=== PATIENT | female | born 1955 | race Caucasian/White ===

== ENCOUNTER 2020-06-18 09:45 | Day surgery (SDC) | payer BC ==
[2020-06-16 16:07] VITALS: BMI 25.9
--- NOTE | 2020-06-18 06:53 | P.GSHP ---
History of Present Illness H&P Date: 06/18/20 65yo female with recurrent utis, a 7-8 mm mid ureteral stone who comes for a left ureterosocpy with laser lithotripsy.The risks, complications including sepsis, ureteral injury, bleeding have been explained understood and accepted. - Constitutional Constitutional: Denies chills, Denies fever - EENT Eyes: denies blurred vision, denies pain Ears, nose, mouth and throat: Denies headache, Denies sore throat - Cardiovascular Cardiovascular: Denies chest pain, Denies shortness of breath - Respiratory Respiratory: Denies cough, Denies 7 - Gastrointestinal Gastrointestinal: Denies abdominal pain, Denies diarrhea, Denies nausea, Denies vomiting - Genitourinary (Female) Genitourinary: Denies dysuria, Denies hematuria - Genitourinary (Male) Genitourinary: Denies dysuria, Denies hematuria - Musculoskeletal Musculoskeletal: Denies myalgias - Integumentary Integumentary: Denies pruritus, Denies rash - Neurological Neurological: Denies numbness, Denies weakness - Psychiatric Psychiatric: Denies anxiety, Denies depression - Endocrine Endocrine: Denies fatigue, Denies weight change Past Medical History Past Medical History: Chest Pain / Angina, Hyperlipidemia, Hypertension Additional Past Medical History / Comment(s): low potassium. glaucoma fernanda eyes History of Any Multi-Drug Resistant Organisms: None Reported Past Surgical History: Section Additional Past Surgical History / Comment(s): laser surgery r/t glaucoma. fernanda carpal tunnel, lt ankle surgery. breast lift and tummy tuck. C/S x3 Past Anesthesia/Blood Transfusion Reactions: Previous Problems w/ Anesthesia Additional Past Anesthesia/Blood Transfusion Reaction / Comment(s): "anesthesia knocks me out for a couple days" Smoking Status: Former smoker - Past Family History Sister(s) Family Medical History: Cancer Medications and Allergies Home Medications Medication Instructions Recorded Confirmed Type Aspirin [Adult Low Dose Aspirin EC] 81 mg PO DAILY 06/16/20 06/16/20 History Atorvastatin [Lipitor] 80 mg PO DAILY 06/16/20 06/16/20 History Cefdinir 300 mg PO Q12HR 06/16/20 06/16/20 History Chlorpheniramine Maleate 4 mg PO DAILY PRN 06/16/20 06/16/20 History [Chlor-Trimeton] Cholecalciferol [Vitamin D3 (25 1,000 unit PO DAILY 06/16/20 06/16/20 History Mcg = 1000 Iu)] Cyanocobalamin (Vitamin B-12) 1,000 mcg PO DAILY 06/16/20 06/16/20 History [Vitamin B-12] Cyclobenzaprine [Flexeril] 10 mg PO DAILY PRN 06/16/20 06/16/20 History Enalapril/Hydrochlorothiazide 1 tab PO DAILY 06/16/20 06/16/20 History [Enalapril/Hydrochlorothiazide 10-25 mg Tablet] Gelatin 2,600 mg PO DAILY 06/16/20 06/16/20 History Multivitamin/Iron/Folic Acid 1 each PO DAILY 06/16/20 06/16/20 History [Centrum Adults Tablet] Nitroglycerin Sl Tabs [Nitrostat] 0.4 mg SUBLINGUAL Q5M PRN 06/16/20 06/16/20 History Potassium Chloride [Klor-Con 20] 20 meq PO DAILY 06/16/20 06/16/20 History Pseudoephedrine 12Hr [Sudafed 12Hr] 120 mg PO DAILY PRN 06/16/20 06/16/20 History Ubidecarenone [Co Q-10] 200 mg PO DAILY 06/16/20 06/16/20 History Vit C/E/Zn/Coppr/Lutein/Zeaxan 1 each PO DAILY 06/16/20 06/16/20 History [Preservision Areds 2 Softgel] amLODIPine BESYLATE [Norvasc] 2.5 mg PO DAILY 06/16/20 06/16/20 History Allergies Allergy/AdvReac Type Severity Reaction Status Date / Time ciprofloxacin [From Cipro] Allergy lips swell Verified 06/16/20 15:49 latanoprost Allergy eyes puffy Verified 06/16/20 15:52 and rash morphine Allergy Nausea Verified 06/16/20 15:49 sulfacetamide [From Bleph-10] Allergy eyes puffy Verified 06/16/20 15:51 and rash sulfamethoxazole Allergy Rash/Hives Verified 06/16/20 15:49 [From Bactrim] timolol [From Timoptic] Allergy eyes puffy Verified 06/16/20 15:51 and rash trimethoprim [From Bactrim] Allergy Rash/Hives Verified 06/16/20 15:49 gentamicin eye drops Allergy eyes puffy Uncoded 06/16/20 15:51 and rash Surgical - Exam - General well developed, well nourished, no distress - Eyes PERRL - ENT no hearing loss - Neck trachea midline - Respiratory normal expansion, normal respiratory effort - Cardiovascular Rhythm: regular - Abdomen Abdomen: soft, non tender - Neurologic normal coordination, normal sensation - Musculoskeletal normal gait, normal posture - Psychiatric oriented to time, oriented to person, oriented to place, speech is normal, memory intact Assessment and Plan Assessment: Impression: Left ureteral stone with recurrent uti Plan: left ureteroscopy with laser lithotripsy, possible stent
[~2020-06-18 09:45] MED LIST: AMPICILLIN 1,000 MG in SODIUM CHLORIDE 0.9% 50 ML IVPB ONE; GENTAMICIN 90 MG in SODIUM CHLORIDE 0.9% 100 ML IVPB ONE
--- NOTE | 2020-06-18 10:03 | XR ---
EXAMINATION TYPE: XR KUB DATE OF EXAM: 06/18/2020 9:58 AM CLINICAL HISTORY: Left-sided kidney stoner TECHNIQUE: Single supine KUB image of the abdomen is obtained. COMPARISON: None. FINDINGS: There a 12 mm calculus in the region of the proximal to mid left ureter overlying the L4 tr ansverse process. Overall nonobstructive bowel gas pattern. Visualized osseous structures are intact. IMPRESSION: As above.
[2020-06-18] MEDS ORDERED: ONDANSETRON 4 MG/2 ML VIAL ONE (10:59)
[2020-06-18] MEDS ORDERED: LACTATED RINGERS 1,000 ML IV ONE (11:05)
[2020-06-18] MEDS ORDERED: DEXAMETHASONE SOD PHOSPHATE 4 MG/ML 1 ML VIAL IVP ONE (11:06)
[2020-06-18] MEDS ORDERED: MIDAZOLAM 2 MG/2 ML VIAL ONE (12:49)
[2020-06-18] MEDS ORDERED: fentaNYL (PF) 50 MCG/ML 2 ML AMP ONE (12:49)
[2020-06-18] MEDS ORDERED: ePHEDrine SULFATE/0.9% NACL/PF 50 MG/5 ML SYRINGE IV ONE (12:49)
[2020-06-18] MEDS ORDERED: ROCURONIUM 10 MG/ML (10 ML VIAL) IV ONE (12:49)
[2020-06-18] MEDS ORDERED: LIDOCAINE 1% INJ 10MG/ML (20 ML MDV) ONE (12:49)
[2020-06-18] MEDS ORDERED: SUCCINYLCHOLINE CHLORIDE 100 MG/5 ML SYR IV ONE (12:49)
[2020-06-18] MEDS ORDERED: PROPOFOL 10 MG/ML 20 ML VIAL IV ONE (12:49)
--- NOTE | 2020-06-18 13:45 | P.OP ---
Date of Procedure: 06/18/20 Preoperative Diagnosis: Recurrent urinary infection with left ureteral stone Postoperative Diagnosis: Same Procedure(s) Performed: Cystoscopy, left ureteroscopy with laser lithotripsy, placement of 6 x 22 double-J catheter Anesthesia: MARCELINA Surgeon: Ivan Walton Estimated Blood Loss (ml): 0 Pathology: other (Down) Condition: stable Disposition: PACU Indications for Procedure: The patient is 65. She has 11 mm midureteral stone. She has had recurrent urinary infection. She comes for cystoscopy ureteroscopy laser lithotripsy left Description of Procedure: The patient was brought to the operating suite. She is given general endotracheal anesthesia. She's placed lithotomy position with sterile prep and drape. The stone was seen under fluoroscopy. Cystoscopy Foroblique lens and 21-Icelandic sheath identifies chronic cystitis cystica. The bladder is otherwise unremarkable. The ureteral orifice was dilated to 10-Icelandic with a 10-Icelandic cone-tipped catheter. No 35 wires passed up into the kidney by the stone. I passed a semirigid ureteroscope up to the stone. With the 270 laser probe Oken into tiny pieces and flushed out of the ureter. There is a lot of edema where the stone had lodged thus a double-J catheter replaced. Over the working wire a 6 x 22 double-J catheters passed and coils in the renal pelvis and the bladder the bladder strain stones collected the patient was awakened and returned recovery room in good condition. She'll be discharged home upon recovery and follow in the office in one week for stent removal.
--- NOTE | 2020-06-18 13:57 | FL ---
EXAMINATION TYPE: FL guidance operating room DATE OF EXAM: 06/18/2020 CLINICAL HISTORY: Left-sided kidney stone. TECHNIQUE: Fluoroscopy. COMPARISON: KUB x-ray earlier today. FINDINGS: Fluoroscopic guidance was provided during cystoscopy with lithotripsy procedure performed by Dr. Walton. A total of 0.04 minute of fluoroscopic time was utilized during the procedure and 3 sp ot images was acquired. Images acquired show advancement of guidewire and subsequent ureter stent. IMPRESSION: As Above.
[2020-06-18 14:04] VITALS: TEMP 97.9
[2020-06-18 14:05] VITALS: RESP 16
[2020-06-18 14:42] VITALS: BP 140/81; PULSE 63
== END 2020-06-18 15:02 | disposition home or self-care (01) ==
LOC: OR 09:45
PROVIDERS: ATTEND Urology
DX: N20.1 Calculus of ureter (principal); I10 Essential (primary) hypertension; E78.5 Hyperlipidemia, unspecified; H40.9 Unspecified glaucoma; Z88.1 Allergy status to other antibiotic agents; Z88.2 Allergy status to sulfonamides; Z88.5 Allergy status to narcotic agent; Z98.891 History of uterine scar from previous surgery; Z98.890 Other specified postprocedural states; Z87.891 Personal history of nicotine dependence; Z80.9 Family history of malignant neoplasm, unspecified; Z79.82 Long term (current) use of aspirin; Z79.899 Other long term (current) drug therapy
CPT/HCPCS: 82365; 74018; 52356; C1758; C1769; C2625; J2250; J1100; J2405; J2001; J0696; J3010; J0330; J2704